=== PATIENT | male | born 1985 | race Caucasian/White ===

== ENCOUNTER 2016-10-05 09:37 | Day surgery (SDC) | payer OTHER ==
[~2016-10-05] VITALS: Ht 177.8 cm; Wt 148.8 kg
[~2016-10-05 09:37] MED LIST: AMLO5TAB2 PO; BUPIVAC MPF-EPI 0.5%-1:200000 30 ML VIAL. ONE; CEFAZOLIN 2GM PREMIX 50 ML IV ONE; FENTANYL PF 100 MCG/2 ML VIAL. IV PRN; HYDROMORPHONE 2 MG/ML VIAL. IV PRN; IV RINGERS,LACTATED 1000ML 1,000 ML IV SCH; LIDOCAINE 1% 1 ML SYRINGE. ID PRN; MORPHINE SULFATE 2 MG/ML DISP.SYRIN. IV PRN; MULT1TAB52 PO; ONDANSETRON PF 4 MG/2 ML VIAL. IV PRN; PROCHLORPERAZINE 10 MG/2 ML VIAL. IV PRN
[2016-10-05] MEDS ORDERED: FENTANYL PF 250 MCG/5 ML VIAL. ONE (10:34)
[2016-10-05] MEDS ORDERED: ROCURONIUM 50 MG/5 ML VIAL. ONE (10:35)
[2016-10-05 10:37] LABS: BASO # 0.1 x10^3/uL (0.0-0.2); BASO % 1 % (0-3); EOS % 2 % (0-3); HEMATOCRIT 47.3 % (39.0-53.0); HEMOGLOBIN 16.2 g/dL (13.0-17.5); LYMPH # 2.6 x10^3/uL (1.0-4.8); LYMPH % 24 % (24-48); MEAN CORPUSCULAR HEMOGLOBIN 29 pg (25-35); MEAN CORPUSCULAR HGB CONC 34 g/dL (31-37); MEAN CORPUSCULAR VOLUME 85 fL (79-100); MONO % 5 % (0-9); NEUT % 68 % (31-73); PLATELET COUNT 246 x10^3/uL (140-400); RED BLOOD COUNT 5.55 x10^6/uL (4.30-5.70); RED CELL DISTRIBUTION WIDTH 14.5 % (11.5-14.5); WHITE BLOOD COUNT 10.7 x10^3/uL (4.0-11.0)
[2016-10-05] MEDS ORDERED: CEFAZOLIN 2GM PREMIX 50 ML IV ONE (10:45)
[2016-10-05] MEDS ORDERED: ACETAMINOPHEN INTRAVENOUS 100 ML IV ONE (10:46)
[2016-10-05 10:51] LABS: ALBUMIN 3.9 g/dL (3.4-5.0); GFR 87.7
[2016-10-05] MEDS ORDERED: SEVOFLURANE 61 TO 120 MINUTES. IH ONE (11:26)
[2016-10-05] MEDS ORDERED: DEXAMETHASONE SOD PHOS 20 MG/5 ML VIAL. ONE (11:26)
[2016-10-05] MEDS ORDERED: PROPOFOL 20 ML IV ONE ×2 (11:26)
[2016-10-05] MEDS ORDERED: ONDANSETRON PF 4 MG/2 ML VIAL. ONE (11:26)
[2016-10-05] MEDS ORDERED: LIDOCAINE 2% PF Vial for OR 5 ML VIAL. ONE ×2 (11:26→11:35)
[2016-10-05] MEDS ORDERED: NEOSTIGMINE METHYLSULFATE 5 MG/5 ML SYRINGE. ONE (11:28)
[2016-10-05] MEDS ORDERED: GLYCOPYRROLATE 1 MG/5 ML VIAL. ONE (11:28)
--- NOTE | 2016-10-05 12:14 | PDOC ---
BRIEF OPERATIVE NOTE Date: Oct 05, 2016 Pre-Op Diagnosis ventral incisional hernia Post-Op Diagnosis same, incarcerated Procedure Performed primary repair Surgeon Maximiliano Spray Gun Striper Anay CAMACHO Anesthesia Type: General Blood Loss 10cc IV Fluid 800cc Specimens Obtained incarcerated contents Findings small (5mm) defect with extruded pre-peritoneal fat Complications none Additional Remarks # [id number] YUNIOR MONTEZ MD Oct 05, 2016 12:14
--- NOTE | 2016-10-05 12:15 | DISCH ---
DISCHARGE INSTRUCTIONS Condition on Discharge Condition on Discharge: Stable Activity After Discharge Activity Instructions for Disc: Activity as tolerated, Avoid exertion Lifting Instructions after Dis: No heavy lifting Driving Instructions after Dis: Do not drive (3-4 days) Diet after Discharge Diet after Discharge: Regular Wound Incision Care Wound/Incision Care: Ice to area for comfort Other wound/incision instructi: wear binder, january shower Saturday Follow-Up Follow up with: next week YUNIOR MONTEZ MD Oct 05, 2016 12:15
[2016-10-05] MEDS ORDERED: OXYC-250 PO (12:21)
[2016-10-05] MEDS ORDERED: OXYCODONE/APAP 10/325 TABLET. PO ONE (12:30)
[2016-10-05 12:54] VITALS: BP 141/71
--- NOTE | 2016-10-05 14:49 | OP ---
DATE OF SURGERY: 10/05/2016 PREOPERATIVE DIAGNOSIS: Ventral incisional hernia. POSTOPERATIVE DIAGNOSIS: Ventral incisional hernia, incarcerated without obstruction or gangrene. PROCEDURE: Primary repair. SURGEON: Yunior Montez MD ANESTHESIA: General endotracheal. ESTIMATED BLOOD LOSS: 10 mL. IV FLUID: 800. INDICATIONS: The patient is a 31-year-old obese male with pain and fullness below a 5 mm port site in the supraumbilical area placed at the previous laparoscopic band procedure. He is brought for repair. OPERATIVE FINDINGS: There was a preperitoneal fat the subcutaneous space from the small (5 mm) defect. DESCRIPTION OF PROCEDURE: The patient brought to the operating suite, given a general endotracheal anesthetic and the abdomen prepped and draped in usual sterile fashion. An elliptical skin incision to include the previous incision for the port placement was infiltrated with local anesthetic, sharply incised and removed. Dissection carried down to the anterior sheath, where the hernia contents were identified and skeletonized. The hernia sac was opened and under direct vision, the incarcerated contents removed with LigaSure. The small remaining fascial defect from the port was closed with interrupted inverted [id number] 0 PDS sutures x 2. Good hemostasis was present. Correct sponge count was obtained. The subcutaneous tissue was approximated with 3-0 Vicryl. The skin was closed with a subcuticular 4-0 Monocryl. Steri-Strips and sterile dressing applied. Abdominal binder placed. The patient was awakened from his anesthetic and taken to the recovery room in satisfactory condition. YUNIOR MONTEZ MD DR: JORDAN/jayda JOB#: [id number] / [id number]
--- NOTE | 2016-10-08 15:16 | PATHOLOGY ---
PATHOLOGY REPORT * * * * * * * * FINAL DIAGNOSIS: Fibroadipose tissue, ventral incisional hernia repair: - Hernia sac showing congestion and focal recent hemorrhage. (JPM:; d/t: 10/08/16) REPORT ELECTRONICALLY SIGNED BY: Hernandez Wolf M.D. DATE/TIME: 10/08/2016 15:16 * * * * * * * * GROSS PATHOLOGY: Received in formalin labeled "Savana Morris, ventral incisional hernia sac with incarcerated contents," is a piece of fibroadipose tissue measuring 4.9 x 3.2 x 2.0 cm. No nodules or lesions are identified. Health Program Specialist tissue is submitted in cassette A1. (CAA; 10/05/2016) INITIAL CPT CODE(S): A; 36124 Professional services performed by [facility] [place] [address] Technical services performed by [facility] at [address] [place] [address] [address], [place] [address]. SPECIMEN(S) RECEIVED: A.Ventral incisional hernia sac with incarcerated contents CLINICAL HISTORY: Supraumbilical hernia PATIENT: SAVANA MORRIS /AGE: 602/16/1985 (Age: 31) PATIENT #: [id number] ALT CASE #: SPECIMEN COLLECTION DATE: 10/05/2016 SPECIMEN RECEIVED DATE: 10/05/2016 [facility] - [address] [place] [address] - PHONE: [phone] * * * END OF REPORT * * *
== END 2016-10-05 13:15 | disposition home or self-care (01) ==
LOC: SURG 09:37
PROVIDERS: ATTEND Surgery
DX: K43.2 Incisional hernia without obstruction or gangrene (principal); I10 Essential (primary) hypertension; E66.9 Obesity, unspecified; E78.00 Pure hypercholesterolemia, unspecified; Z72.89 Other problems related to lifestyle
CPT/HCPCS: 36415; 49561; 80048; 82040; 85027; 88302; C1769; J0131; J0690; J1100; J2405; J2704; J2710; J3010; J3490; J7120